=== PATIENT | male | born 1980 | race African-American/Black ===

== ENCOUNTER 2017-03-14 08:52 | Emergency (ER) | payer OTHER ==
[2017-03-14 09:02] VITALS: BP 145/79; PULSE 75; TEMP 98.6; BMI 29.8
[2017-03-14] MEDS ORDERED: ALBUTEROL SO4 0.083% IH SOL 2.5 MG/3 ML VIAL.NEB. NEB ONE ×2 (09:36→09:40)
[2017-03-14] MEDS ORDERED: IBUPROFEN 600 MG TABLET (FP) PO ONE (10:24)
[2017-03-14] MEDS ORDERED: IBUPROFEN 400 MG TABLET (FP) PO ONE (10:27)
--- NOTE | 2017-03-14 10:27 | PDOC ---
History of Present Illness - General Chief Complaint: Chest Pain Stated Complaint: CHEST PAIN Time Seen by Provider: 03/14/17 09:22 History Source: Patient Exam Limitations: No Limitations - History of Present Illness Initial Comments: 03/14/17 10:49 36 yr male with c/o cough body aches sore throat for 3 days no fever no vomiting no abd pain. Had loose stool yesterday. Pt has no PMHX, smokes cigarettes. Timing/Duration: constant Severity: mild Associated Symptoms: reports: cough Past History - Past Medical History Allergies/Adverse Reactions: Allergies Allergy/AdvReac Type Severity Reaction Status Date / Time ciprofloxacin [From Cipro] Allergy Verified 03/14/17 09:02 ciprofloxacin HCl Allergy Verified 03/14/17 09:02 [From Cipro] Penicillins Allergy Verified 03/14/17 09:02 fruits Allergy Mild Uncoded 03/14/17 09:02 Home Medications: Ambulatory Orders NK [No Known Home Medication] 03/14/17 COPD: No Other medical history: denies - Immunization History Td Vaccination: Yes Immunization Up to Date: Yes - Suicide/Smoking/Psychosocial Hx Smoking Status: No Smoking History: Never smoked Years of Tobacco Use: 0 Have you smoked in the past 12 months: No Number of Cigarettes Smoked Daily: 0 Cigars Per Day: 0 Information on smoking cessation initiated: No Hx Alcohol Use: No Drug/Substance Use Hx: No Substance Use Type: None Review of Systems - Review of Systems Able to Perform ROS?: Yes Is the patient limited [place] proficient: No Constitutional: No: Symptoms Reported HEENTM: Yes: Symptoms Reported Respiratory: Yes: Symptoms reported *Physical Exam - Vital Signs Last Vital Signs Temp Pulse Resp BP Pulse Ox 98.6 F 75 18 145/79 100 03/14/17 08:57 03/14/17 08:57 03/14/17 08:57 03/14/17 08:57 03/14/17 08:57 - Physical Exam General Appearance: Yes: Nourished, Appropriately Dressed HEENT: positive: EOMI, MURALI, Normal ENT Inspection, TMs Normal, Pharynx Normal Neck: positive: Supple. negative: Tender, Lymphadenopathy (R), Lymphadenopathy (L) Respiratory/Chest: positive: Lungs Clear, Normal Breath Sounds. negative: Chest Tender, Accessory Muscle Use Cardiovascular: positive: Regular Rhythm, Regular Rate Gastrointestinal/Abdominal: positive: Normal Bowel Sounds, Soft. negative: Tender Musculoskeletal: positive: Normal Inspection Extremity: positive: Normal Capillary Refill, Normal Inspection, Normal Range of Motion Integumentary: positive: Normal Color, Dry, Warm Neurologic: positive: Fully Oriented, Alert, Normal Mood/Affect, Normal Response , Motor Strength 08/17 ED Treatment Course - ADDITIONAL ORDERS Additional order review: 03/14/17 09:33 Group A Strep Rapid Antigen - Final Throat - Medications Given in the ED: ED Medications Discontinued Medications Generic Name Dose Route Start Last Admin Trade Name Freq PRN Reason Stop Dose Admin Albuterol Sulfate 1 amp 03/14/17 09:36 03/14/17 09:48 Ventolin 0.083% Nebulizer Soln - NEB 03/14/17 09:37 1 amp ONCE ONE Administration Medical Decision Making - Medical Decision Making 03/14/17 15:18 cc: cough sore throat body aches , non toxic well appearing took aleve at 3am neg nvd neg abd pain or back pain neg urinary complaints will check for strep motrin now pt requesting a work note for today neg strep dc inst verbally given all questions asked and answered. pt agrees with the plan of care *DC/Admit/Observation/Transfer Diagnosis at time of Disposition: Viral upper respiratory illness - Discharge Dispostion Disposition: HOME Condition at time of disposition: Good - Referrals Referrals: Trae Akhtar MD [Primary Care Provider] - - Patient Instructions Additional Instructions: take over the counter ibuprofen 600-800mg as directed for pain or fever get pleanty of rest increase vitamin C and Zinc intake to boost your immune system take Beneadryl at bedtime if needed to help sleep Return to ER for any worsening symptoms otherwise follow with on Saturday - Post Discharge Activity Forms/Work/School Notes: Back to Work
--- NOTE | 2017-03-21 11:41 | EKG ---
Test Reason : Blood Pressure : / mmHG Vent. Rate : 078 BPM Atrial Rate : 078 BPM P-R Int : 152 ms QRS Dur : 086 ms QT Int : 366 ms P-R-T Axes : -09 033 013 degrees QTc Int : 417 ms NORMAL SINUS RHYTHM NORMAL ECG WHEN COMPARED WITH ECG OF 16-APR-2012 06:40, NONSPECIFIC T WAVE ABNORMALITY NOW EVIDENT IN INFERIOR LEADS Confirmed by ANTONINO GHOSH MD ([id number]) on 03/21/2017 11:41:11 AM Referred By: Confirmed By:ANTONINO GHOSH MD
== END 2017-03-14 10:31 | disposition home or self-care (01) ==
LOC: JERFT 08:52
PROC: 3E0F7GC Introduction of Other Therapeutic Substance into Respiratory Tract, Via Natural or Artificial Opening (ICD-10-PCS; principal; 2017-03-14)
DX: J06.9 Acute upper respiratory infection, unspecified (principal); B97.89 Other viral agents as the cause of diseases classified elsewhere
CPT/HCPCS: 87070; 87077; 87430; 93005; 93010; 99281-25

== ENCOUNTER 2017-03-19 09:08 | Emergency (ER) | payer OTHER ==
[2017-03-19 09:15] VITALS: TEMP 98.5; BMI 31.1
--- NOTE | 2017-03-19 09:24 | PDOC ---
History of Present Illness - General Chief Complaint: Nausea/Vomiting Stated Complaint: NAUSEA/VOMITING Time Seen by Provider: 03/19/17 09:23 History Source: Patient Past History - Past Medical History Allergies/Adverse Reactions: Allergies Allergy/AdvReac Type Severity Reaction Status Date / Time ciprofloxacin [From Cipro] Allergy Verified 03/19/17 09:11 ciprofloxacin HCl Allergy Verified 03/19/17 09:11 [From Cipro] Penicillins Allergy Verified 03/19/17 09:11 fruits Allergy Mild Uncoded 03/19/17 09:11 Home Medications: Ambulatory Orders NK [No Known Home Medication] 03/14/17 COPD: No - Immunization History Td Vaccination: Yes Immunization Up to Date: Yes - Suicide/Smoking/Psychosocial Hx Smoking Status: No Smoking History: Never smoked Years of Tobacco Use: 0 Have you smoked in the past 12 months: No Number of Cigarettes Smoked Daily: 0 Cigars Per Day: 0 Information on smoking cessation initiated: No Hx Alcohol Use: No Drug/Substance Use Hx: No Substance Use Type: None *Physical Exam - Vital Signs Last Vital Signs Temp Pulse Resp BP Pulse Ox 98.5 F 73 18 147/84 100 03/19/17 09:11 03/19/17 09:11 03/19/17 09:11 03/19/17 09:11 03/19/17 09:11 *DC/Admit/Observation/Transfer - Referrals Referrals: Trae Akhtar MD [Primary Care Provider] - - Patient Instructions - Post Discharge Activity
--- NOTE | 2017-03-19 09:38 | PDOC ---
History of Present Illness <Michelle Whiting - Last Filed: 03/19/17 15:53> - General History Source: Patient Exam Limitations: No Limitations - History of Present Illness Initial Comments: 03/19/17 10:28 The patient is a 36 year old male with no significant PMH who presents to the emergency department with nausea, vomiting, and left upper quadrant pain beginning approximately three days ago. The patient was here on 03/14 with complaints of a sore throat but states his throat feels better. The patient reports increased nausea and vomiting since. The patient states the first few episodes of vomiting were food followed by yellow colored vomit. The patient notes the vomiting is occasionally triggered by coughing. The patient notes he has been unable to eat or drink. The patient states his left upper quadrant pain is exacerbated by deep inspiration. The patient also complains of associated fever, chills, generalized weakness, some chest pain, and fatigue. The patient denies any sick contacts or recent travel. The patient denies shortness of breath, headache and dizziness. Denies diarrhea and constipation. Denies dysuria, frequency, urgency and hematuria. Allergies: Cirpofloxacin Past surgical history: None reported Social history: No reported alcohol cigarette, or drug use. PCP: Dr. Akhtar <Shanon Khalil - Last Filed: 03/19/17 16:28> - General Chief Complaint: Nausea/Vomiting Stated Complaint: NAUSEA/VOMITING Time Seen by Provider: 03/19/17 09:23 Past History - Past Medical History COPD: No - Immunization History Td Vaccination: Yes Immunization Up to Date: Yes - Suicide/Smoking/Psychosocial Hx Smoking Status: No Smoking History: Never smoked Years of Tobacco Use: 0 Have you smoked in the past 12 months: No Number of Cigarettes Smoked Daily: 0 Cigars Per Day: 0 Information on smoking cessation initiated: No Hx Alcohol Use: No Drug/Substance Use Hx: No Substance Use Type: None <Michelle Whiting - Last Filed: 03/19/17 15:53> <Shanon Khalil - Last Filed: 03/19/17 16:28> - Past Medical History Allergies/Adverse Reactions: Allergies Allergy/AdvReac Type Severity Reaction Status Date / Time ciprofloxacin [From Cipro] Allergy Verified 03/19/17 09:11 ciprofloxacin HCl Allergy Verified 03/19/17 09:11 [From Cipro] fruits Allergy Mild Uncoded 03/19/17 09:11 Home Medications: Ambulatory Orders NK [No Known Home Medication] 03/14/17 Review of Systems - Review of Systems Able to Perform ROS?: Yes Comments:: 03/19/17 10:40 GENERAL/CONSTITUTIONAL: (+) Fever. (+) Weakness. No chills. HEAD, EYES, EARS, NOSE AND THROAT: No change in vision. No ear pain or discharge. No sore throat. CARDIOVASCULAR: (+) Some chest pain. No shortness of breath. RESPIRATORY: (+) cough. No wheezing, or hemoptysis. GASTROINTESTINAL: (+) nausea and vomiting. No diarrhea or constipation. GENITOURINARY: No dysuria, frequency, or change in urination. MUSCULOSKELETAL: No joint or muscle swelling or pain. No neck or back pain. SKIN: No rash NEUROLOGIC: No headache, vertigo, loss of consciousness, or change in strength/ sensation. ENDOCRINE: No increased thirst. No abnormal weight change. HEMATOLOGIC/LYMPHATIC: No anemia, easy bleeding, or history of blood clots. ALLERGIC/IMMUNOLOGIC: No hives or skin allergy. <Shanon Khalil - Last Filed: 03/19/17 16:28> *Physical Exam - Vital Signs Last Vital Signs Temp Pulse Resp BP Pulse Ox 98.5 F 73 18 147/84 100 03/19/17 09:11 03/19/17 09:11 03/19/17 09:11 03/19/17 09:11 03/19/17 09:11 <Michelle Whiting - Last Filed: 03/19/17 15:53> - Vital Signs Last Vital Signs Temp Pulse Resp BP Pulse Ox 98.5 F 73 18 147/84 100 03/19/17 09:11 03/19/17 09:11 03/19/17 09:11 03/19/17 09:11 03/19/17 09:11 - Physical Exam Comments: 03/19/17 10:41 GENERAL: (+) Appears uncomfortable. Awake, alert, and fully oriented HEAD: No signs of trauma EYES: PERRLA, EOMI, sclera anicteric, conjunctiva clear ENT: (+) Dry mucosa. (+) Throat erythema. (+) Enlarged tonsilar hypertrophy. Auricles normal inspection, hearing grossly normal, nares patent, no exudates. NECK: Normal ROM, supple, no lymphadenopathy, JVD, or masses LUNGS: Breath sounds equal, clear to auscultation bilaterally. No wheezes, and no crackles HEART: Regular rate and rhythm, normal S1 and S2, no murmurs, rubs or gallops ABDOMEN: (+) Left upper quadrant tenderness. Soft, normoactive bowel sounds. No guarding, no rebound. No masses EXTREMITIES: Normal range of motion, no edema. No clubbing or cyanosis. No cords, erythema, or tenderness NEUROLOGICAL: Cranial nerves II through XII grossly intact. Normal speech, normal gait SKIN: Warm, Dry, normal turgor, no rashes or lesions noted. <Shanon Khalil - Last Filed: 03/19/17 16:28> ED Treatment Course - LABORATORY CBC & Chemistry Diagram: 03/19/17 10:40 03/19/17 10:40 <Michelle Whiting - Last Filed: 03/19/17 15:53> - LABORATORY CBC & Chemistry Diagram: 03/19/17 10:40 03/19/17 10:40 <Shanon Khalil - Last Filed: 03/19/17 16:28> Medical Decision Making - Medical Decision Making 03/19/17 11:53 Pt reassessed, still having stomach discomfort. Will give analgesic and continue to monitor. 03/19/17 12:48 Pt reassessed. Reports improvement in symptoms, but still having significant L- sided tenderness, now in the LLQ as well. Will obtain CT to further evaluate. <Michelle Whiting - Last Filed: 03/19/17 15:53> *DC/Admit/Observation/Transfer - Discharge Dispostion Admit: No <Michelle Whiting - Last Filed: 03/19/17 15:53> - Attestations Scribe Attestion: 03/19/17 10:43 Documentation prepared by Shanon Khalil, acting as medical equipment technician for Michelle Whiting MD. <Shanon Khalil - Last Filed: 03/19/17 16:28> Diagnosis at time of Disposition: Abdominal pain Qualifiers: Abdominal location: unspecified location Qualified Code(s): R10.9 - Unspecified abdominal pain - Discharge Dispostion Disposition: HOME Condition at time of disposition: Stable - Referrals Referrals: Juancarlos Brenner MD [Staff Physician] - - Patient Instructions Printed Discharge Instructions: DI for Abdominal Pain-Adult - Post Discharge Activity
[2017-03-19] MEDS ORDERED: FAMOTIDINE IV 20 MG/12 ML VIAL IVPB ONE (10:26)
[2017-03-19] MEDS ORDERED: SODIUM CHLORIDE 1,000 ML IV STA (10:26)
[2017-03-19] MEDS ORDERED: ONDANSETRON 4 MG/2 ML VIAL IVPUSH ONE (10:26)
[2017-03-19] MEDS ORDERED: FAMOTIDINE 20 MG/50 ML IVPB 20 MG/50 ML MG IVPB ONE (10:48)
[2017-03-19] MEDS ORDERED: ONDANSETRON 4 MG/2 ML VIAL ONE (10:48)
[2017-03-19 10:58] LABS: EOSINOPHIL 0.6 % (0-4.5); MCH 28.7 pg (25.7-33.7); MEAN PLT VOLUME 8.1 fl (7.5-11.1); NEUTROPHILS 67.2 % (42.8-82.8); PLATELET COUNT 317 K/MM3 (134-434); RDW 13.8 % (11.9-15.9); WHITE BLOOD COUNT 10.8 K/mm3 (4.0-10.0)
[2017-03-19 11:23] LABS: ALBUMIN 4.3 g/dl (3.4-5.0); ANION GAP 9 (8-16); BILIRUBIN,TOTAL 0.7 mg/dL (0.2-1.0); CALCIUM 9.7 mg/dL (8.5-10.1); CO2 27 mmol/L (21-32); CREATININE 1.2 mg/dL (0.7-1.3); GLUCOSE,RANDOM 95 mg/dL (74-106); SGOT/AST 17 U/L (15-37); SGPT/ALT 23 U/L (12-78); TOT PROT 8.6 g/dl (6.4-8.2)
[2017-03-19 11:24] LABS: ALK PHOS 90 U/L (45-117)
[2017-03-19] MEDS ORDERED: ACETAMINOPHEN 1000 MG/100 ML VIAL (NON FORMULARY) IVPB ONE (11:53)
[2017-03-19] MEDS ORDERED: ACETAMINOPHEN INJECTION 100 ML IVPB ONE (11:57)
[2017-03-19] MEDS ORDERED: PANTOPRAZOLE SODIUM 40 MG VIAL IVPUSH ONE (15:09)
[2017-03-19] MEDS ORDERED: PANTOPRAZOLE SODIUM 40 MG VIAL ONE (15:20)
[2017-03-19 16:51] VITALS: BP 145/86; PULSE 71
[2017-03-19 16:57] LABS: URINE APPEARANCE CLEAR; URINE BILIRUBIN NEGATIVE (NEGATIVE); URINE BLOOD NEGATIVE (NEGATIVE); URINE COLOR LTYELLOW; URINE GLUCOSE (UA) NEGATIVE (NEGATIVE); URINE KETONE 1+ (NEGATIVE); URINE NITRITE NEGATIVE (NEGATIVE); URINE PROTEIN NEGATIVE (NEGATIVE); URINE UROBILINOGEN 4.0 E.U/dl mg/dL (0.2-1.0)
[2017-03-19 18:57] LABS: URINE LEUK ESTERASE Negative (NEGATIVE)
== END 2017-03-19 16:58 | disposition home or self-care (01) ==
LOC: JER 09:08
PROC: 3E033NZ Introduction of Analgesics, Hypnotics, Sedatives into Peripheral Vein, Percutaneous Approach (ICD-10-PCS; principal; 2017-03-19)
PROC: 3E033GC Introduction of Other Therapeutic Substance into Peripheral Vein, Percutaneous Approach (ICD-10-PCS; 2017-03-19)
PROC: 3E0337Z Introduction of Electrolytic and Water Balance Substance into Peripheral Vein, Percutaneous Approach (ICD-10-PCS; 2017-03-19)
DX: R10.9 Unspecified abdominal pain (principal)
CPT/HCPCS: 36415; 74177-TC; 80053; 81003; 83690; 85025; 96361; 96365; 96375; 99282-25; Q9967

== ENCOUNTER 2017-06-29 23:06 | Emergency (ER) | payer OTHER ==
[2017-06-29 23:25] VITALS: BP 124/75; PULSE 54; TEMP 98; BMI 29.8
--- NOTE | 2017-06-29 23:44 | PDOC ---
History of Present Illness - General History Source: Patient Exam Limitations: No Limitations <Shanon Khalil - Last Filed: 06/30/17 00:06> <Joel Knapp - Last Filed: 06/30/17 00:54> - General Chief Complaint: Chest Pain Stated Complaint: CHEST PAIN Time Seen by Provider: 06/29/17 23:43 - History of Present Illness Initial Comments: 06/30/17 00:06 The patient is a 36 year old male with no significant PMH who presents to the emergency department with muscular pain along the breast bone after sneezing this morning that is worsened by deep inspiration. The patient reports he took an Aleve PM with minimal relief. The patient endorses sick contact but denies leg swelling, recent travel, or long periods of inactivity. The patient denies shortness of breath, headache and dizziness. Denies fever, chills, nausea, vomit, diarrhea and constipation. Denies dysuria, frequency, urgency and hematuria. Allergies: NKA Past surgical history: None reported. Social history: No reported alcohol, drug, or cigarette use. (Shanon Khalil) Past History <Shanon Khalil - Last Filed: 06/30/17 00:06> - Past Medical History COPD: No - Immunization History Td Vaccination: Yes Immunization Up to Date: Yes - Suicide/Smoking/Psychosocial Hx Smoking Status: No Smoking History: Former smoker Years of Tobacco Use: 0 Have you smoked in the past 12 months: No Number of Cigarettes Smoked Daily: 0 Cigars Per Day: 0 Information on smoking cessation initiated: No Hx Alcohol Use: No Drug/Substance Use Hx: No Substance Use Type: None <Joel Knapp - Last Filed: 06/30/17 00:54> - Past Medical History Allergies/Adverse Reactions: Allergies Allergy/AdvReac Type Severity Reaction Status Date / Time ciprofloxacin [From Cipro] Allergy Verified 06/29/17 23:21 ciprofloxacin HCl Allergy Verified 06/29/17 23:21 [From Cipro] fruits Allergy Mild Uncoded 06/29/17 23:21 Home Medications: Ambulatory Orders Ondansetron [Zofran -] 4 mg PO TID PRN #21 tablet 03/19/17 Pantoprazole Sodium [Protonix -] 40 mg PO DAILY #30 tablet.ec 03/19/17 Review of Systems - Review of Systems Able to Perform ROS?: Yes <Shanon Khalil - Last Filed: 06/30/17 00:06> <Joel Knapp - Last Filed: 06/30/17 00:54> - Review of Systems Comments:: 06/29/17 23:57 CONSTITUTIONAL: No fever, no chills, no fatigue EYES: No visual changes ENT: No ear pain, no sore throat CARDIOVASCULAR: (+) Chest pain. no palpitations RESPIRATORY: No cough, no SOB GI: No abdominal pain, no nausea, no vomiting, no constipation, no diarrhea GENITOURINARY: No dysuria, no frequency, no hematuria MUSKULOSKELETAL: No backpain, no joint pain, no myalgias SKIN: No rash NEURO: No headache (Shanon Khalil) *Physical Exam <Shanon Khalil - Last Filed: 06/30/17 00:06> <Joel Knapp - Last Filed: 06/30/17 00:54> - Vital Signs Last Vital Signs Temp Pulse Resp BP Pulse Ox 98 F 54 L 16 124/75 99 06/29/17 23:22 06/29/17 23:22 06/29/17 23:22 06/29/17 23:22 06/29/17 23:22 - Physical Exam Comments: 06/29/17 23:57 CONSTITUTIONAL: Well-appearing; well-nourished; in no apparent distress HEAD: Normocephalic; atraumatic EYES: PERRL; EOM intact ENMT: External appears normal; normal oropharynx NECK: Supple; non-tender; no cervical lymphadenopathy CARD: Normal S1, S2; no murmurs, rubs, or gallops RESP: Normal chest excursion with respiration; breath sounds clear and equal bilaterally; no wheezes, rhonchi, or rales ABD: Soft, non-distended; non-tender; no palpable organomegaly, no palpable hernias EXT: Normal ROM in all four extremities; non-tender to palpation; distal pulses intact SKIN: Warm, dry, no rash NEURO: No focal neurological deficiencies. (Shanon Khalil) Heart Score/ECG Review <Shanon Khalil - Last Filed: 06/30/17 00:06> <Joel Knapp - Last Filed: 06/30/17 00:54> #1 06/29/17 23:58 EKG performed at [23:27] demonstrates rate of [90], Normal Sinus Rhythm. (Shanon Khalil) - Medications Given in the ED: ED Medications Discontinued Medications Generic Name Dose Route Start Last Admin Trade Name Trista PRN Reason Stop Dose Admin Ketorolac Tromethamine 60 mg 06/29/17 23:55 06/30/17 00:04 Toradol Injection - IM 06/29/17 23:56 60 mg ONCE ONE Administration Tramadol HCl 50 mg 06/30/17 00:45 06/30/17 00:52 Ultram - PO 06/30/17 00:46 50 mg ONCE ONE Administration Medical Decision Making <Shanon Khalil - Last Filed: 06/30/17 00:06> <Joel Knapp - Last Filed: 06/30/17 00:54> - Medical Decision Making 06/30/17 00:53 Patient was musculoskeletal chest wall pain. ACS or PE highly unlikely. I do not suspect pneumothorax either. Patient improved after administration of Toradol. We'll administer tramadol. Will discharge. (Joel Knapp) *DC/Admit/Observation/Transfer <Shanon Khalil - Last Filed: 06/30/17 00:06> <Joel Knapp - Last Filed: 06/30/17 00:54> Diagnosis at time of Disposition: Chest wall pain - Discharge Dispostion Disposition: HOME Condition at time of disposition: Stable - Referrals Referrals: Tare Akhtar MD [Primary Care Provider] - - Patient Instructions Printed Discharge Instructions: DI for Chest Pain - Post Discharge Activity Forms/Work/School Notes: Back to Work - Attestations Scribe Attestion: 06/29/17 23:57 Documentation prepared by Shanon Khalil, acting as medical csr for Joel Knapp MD. (Shanon Khalil) Physician Attestion: 06/30/17 00:53 The documentation was prepared by the scribe under my direct supervision. I have reviewed the documentation which correctly represents the findings, medical decision-making and critical action taken by me. (Joel Knapp)
[2017-06-29] MEDS ORDERED: KETOROLAC TROMETHAMINE 60 MG/2 ML VIAL IM ONE (23:55)
[2017-06-30] MEDS ORDERED: KETOROLAC TROMETHAMINE 60 MG/2 ML VIAL ONE (00:01)
[2017-06-30] MEDS ORDERED: traMADol HCL 50 MG TABLET PO ONE (00:45)
[2017-06-30] MEDS ORDERED: traMADol HCL 50 MG TABLET ONE (00:51)
--- NOTE | 2017-06-30 23:58 | EKG ---
Test Reason : Blood Pressure : / mmHG Vent. Rate : 090 BPM Atrial Rate : 091 BPM P-R Int : 140 ms QRS Dur : 086 ms QT Int : 366 ms P-R-T Axes : 069 057 053 degrees QTc Int : 447 ms POOR DATA QUALITY, INTERPRETATION MAY BE ADVERSELY AFFECTED NORMAL SINUS RHYTHM NORMAL ECG WHEN COMPARED WITH ECG OF 14-MAR-2017 08:56, NONSPECIFIC T WAVE ABNORMALITY NO LONGER EVIDENT IN INFERIOR LEADS Confirmed by ESTUARDO GUARDADO MD ([id number]) on 06/30/2017 11:57:44 PM Referred By: Confirmed By:ESTUARDO GUARDADO MD
== END 2017-06-30 01:02 | disposition home or self-care (01) ==
LOC: JER 23:06
PROC: 3E0233Z Introduction of Anti-inflammatory into Muscle, Percutaneous Approach (ICD-10-PCS; principal; 2017-06-29)
DX: R07.89 Other chest pain (principal); Z87.891 Personal history of nicotine dependence
CPT/HCPCS: 93005; 93010; 96372; 99281-25

== ENCOUNTER 2017-07-14 08:22 | Emergency (ER) | payer OTHER ==
[2017-07-14 08:28] VITALS: BP 122/87; PULSE 84; TEMP 98.3; BMI 28.8
--- NOTE | 2017-07-14 08:44 | PDOC ---
History of Present Illness - General Chief Complaint: Injury Stated Complaint: INJURY Time Seen by Provider: 07/14/17 08:34 History Source: Patient Exam Limitations: No Limitations - History of Present Illness Initial Comments: 07/14/17 09:58 Best Contact: Pmhx:HTN "once in my life 3 years ago" Pshx: N/A Allergies: NKDA 37-year-old male right hand dominant presents to the emergency department complaining of dorsal right wrist pain. Patient states pain is more towards the medial aspect. The pain is exacerbated on movement, especially attempting to supinate and pronate his right wrist. Patient states while walking his dog at approximately 0500 hrs. this morning, he tripped and fell forward onto his right wrist/hand. Patient denies any head injuries, neck/back pains, extremity numbness or tingling sensation. Patient states the pain is 10/10 sharp nonradiating constant pain while moving but minimal at rest. Patient denies any other injuries or complaints. Occurred: reports: just prior to arrival Past History - Past Medical History Allergies/Adverse Reactions: Allergies Allergy/AdvReac Type Severity Reaction Status Date / Time ciprofloxacin [From Cipro] Allergy Verified 07/14/17 08:25 ciprofloxacin HCl Allergy Verified 07/14/17 08:25 [From Cipro] fruits Allergy Mild Uncoded 07/14/17 08:25 Home Medications: Ambulatory Orders NK [No Known Home Medication] 07/14/17 COPD: No - Immunization History Td Vaccination: Yes Immunization Up to Date: Yes - Suicide/Smoking/Psychosocial Hx Smoking Status: No Smoking History: Former smoker Years of Tobacco Use: 0 Have you smoked in the past 12 months: No Number of Cigarettes Smoked Daily: 0 Cigars Per Day: 0 Information on smoking cessation initiated: No Hx Alcohol Use: No Drug/Substance Use Hx: No Substance Use Type: None Trauma Specific PMHX - Complaint Specific PMHX Back Injury: No Neck Injury: No *Physical Exam - Vital Signs Last Vital Signs Temp Pulse Resp BP Pulse Ox 98.3 F 84 18 122/87 100 07/14/17 08:26 07/14/17 08:26 07/14/17 08:26 07/14/17 08:26 07/14/17 08:26 ED Treatment Course - RADIOLOGY Radiograph Interpretation: 07/14/17 09:55 XR: Right wrist; ?hamate fx/dislocations CT upper ext w/o contrast: neg fx/dislocation Progress Note - Progress Note Progress Note: Right sugar tong/orthoglass Medical Decision Making - Medical Decision Making 07/14/17 10:00 This is a 37-year-old male who is right hand dominant and comes to the ER complaining of right wrist pain after a slip and fall while walking his dog. Patient fell forward onto his right hand/wrist but deny any head,neck or back injuries. I ordered a plain film of his right wrist which does not show any obvious fracture or dislocation but I was a bit concerned about the hamate. On palpation to the hamate, patient is in excruciating pain. Although the patient is not able to supinate or pronate his right wrist due to's the severity of his pain I decided to order a CAT scan without contrast to his right hand/wrist. Patient will have a sugar tong splint to prevent him from supinating and pronating his right wrist. Strict instructions to follow-up with although within 48 hours. *DC/Admit/Observation/Transfer Diagnosis at time of Disposition: Contusion of wrist, right Qualifiers: Encounter type: initial encounter Qualified Code(s): S60.211A - Contusion of right wrist, initial encounter - Discharge Dispostion Disposition: HOME Condition at time of disposition: Stable Admit: No - Referrals Referrals: Trae Akhtar MD [Primary Care Provider] - Redd Lu MD [Staff Physician] - - Patient Instructions Printed Discharge Instructions: DI for Wrist Sprain, DI for Contusion Additional Instructions: Ice; 20 mins on alternating with 20 mins off for 48 hours while awake. Rest Elevate Follow up with your orthopedic surgeon or the one listed on the discharge form. Return to the ER for severe/persistent/worsening symptoms, extremity numbness/ tingling sensation. - Post Discharge Activity Forms/Work/School Notes: Back to Work
[2017-07-14] MEDS ORDERED: IBUPROFEN 400 MG TABLET (FP) PO ONE ×2 (09:26→09:33)
== END 2017-07-14 11:05 | disposition home or self-care (01) ==
LOC: JERFT 08:22
DX: S60.211A Contusion of right wrist, initial encounter (principal); W18.39XA Other fall on same level, initial encounter; Y93.K1 Activity, walking an animal; Y92.414 Local residential or business street as the place of occurrence of the external cause; Y99.8 Other external cause status
CPT/HCPCS: 73110-TC-RT-FY; 73200-TC-RT; 99282-25

== ENCOUNTER 2021-10-29 13:29 | Emergency (ER) | payer OTHER ==
[2021-10-29 13:46] VITALS: BP 135/93; PULSE 84; TEMP 97.9; BMI 29.8
[2021-10-29] MEDS ORDERED: ACETAMINOPHEN 500 MG TABLET (FP) PO ONE (14:01)
[2021-10-29] MEDS ORDERED: diazePAM 5 MG TABLET PO ONE (14:01)
[2021-10-29] MEDS ORDERED: KETOROLAC TROMETHAMINE 60 MG/2 ML VIAL IM ONE (14:01)
[2021-10-29] MEDS ORDERED: ACETAMINOPHEN 500 MG TABLET (FP) ONE (14:03)
[2021-10-29] MEDS ORDERED: diazePAM 5 MG TABLET ONE (14:03)
[2021-10-29] MEDS ORDERED: KETOROLAC TROMETHAMINE 60 MG/2 ML VIAL ONE (14:03)
[2021-10-29] MEDS ORDERED: LIDOCAINE 5% TOPICAL PATCH TP ONE (15:58)
[2021-10-29] MEDS ORDERED: LIDOCAINE 5% TOPICAL PATCH ONE (15:58)
[2021-10-29] MEDS ORDERED: LIDOCAINE PATCH REMOVAL MC SCH (22:00)
== END 2021-10-29 16:06 | disposition home or self-care (01) ==
LOC: JER 13:29 → JERFT 13:29
PROC: 3E0233Z Introduction of Anti-inflammatory into Muscle, Percutaneous Approach (ICD-10-PCS; principal; 2021-10-29)
DX: S29.012A Strain of muscle and tendon of back wall of thorax, initial encounter (principal); M25.511 Pain in right shoulder; S39.012A Strain of muscle, fascia and tendon of lower back, initial encounter
CPT/HCPCS: 71111-TC-FY; 73030-TC-LT-FY; 73030-TC-RT-FY; 99284-25

== ENCOUNTER 2021-11-01 10:12 | Emergency (ER) | payer OTHER ==
[2021-11-01 10:24] VITALS: BP 152/87; PULSE 66; TEMP 98; BMI 29.1
[2021-11-01] MEDS ORDERED: KETOROLAC TROMETHAMINE 60 MG/2 ML VIAL IM ONE (11:19)
[2021-11-01] MEDS ORDERED: ONDANSETRON 4 MG/2 ML VIAL IVPUSH ONE (11:32)
[2021-11-01] MEDS ORDERED: KETOROLAC TROMETHAMINE 30 MG/1 ML VIAL IVPUSH ONE (11:32)
[2021-11-01] MEDS ORDERED: ONDANSETRON 4 MG/2 ML VIAL ONE (11:34)
[2021-11-01] MEDS ORDERED: KETOROLAC TROMETHAMINE 30 MG/1 ML VIAL ONE (11:34)
[2021-11-01] MEDS ORDERED: ACETAMINOPHEN 1000 MG/100 ML BAG IVPB ONE (12:17)
[2021-11-01] MEDS ORDERED: ACETAMINOPHEN INJECTION 100 ML IVPB ONE (12:19)
== END 2021-11-01 14:25 | disposition home or self-care (01) ==
LOC: JERFT 10:12 → JER 10:12 → JERFT 14:31
PROC: 3E033GC Introduction of Other Therapeutic Substance into Peripheral Vein, Percutaneous Approach (ICD-10-PCS; principal; 2021-11-01)
DX: M54.2 Cervicalgia (principal); M54.6 Pain in thoracic spine
CPT/HCPCS: 72125-TC; 72128-TC; 72131-TC; 99285-25

== ENCOUNTER 2021-12-02 19:53 | Emergency (ER) | payer OTHER ==
[2021-12-02 20:08] VITALS: BP 136/86; RESP 18; TEMP 98.6; BMI 27.1
[2021-12-02] MEDS ORDERED: ONDANSETRON 4 MG/2 ML VIAL IVPUSH ONE (21:08)
[2021-12-02] MEDS ORDERED: KETOROLAC TROMETHAMINE 30 MG/1 ML VIAL IVPUSH ONE (21:08)
[2021-12-02] MEDS ORDERED: SODIUM CHLORIDE 0.9% 500 ML INFUS.BAG IV ONE (21:08)
[2021-12-02 22:35] VITALS: PULSE 85
== END 2021-12-02 22:42 | disposition home or self-care (01) ==
LOC: JER 19:53
PROC: 3E0333Z Introduction of Anti-inflammatory into Peripheral Vein, Percutaneous Approach (ICD-10-PCS; principal; 2021-12-02)
PROC: 3E033GC Introduction of Other Therapeutic Substance into Peripheral Vein, Percutaneous Approach (ICD-10-PCS; 2021-12-02)
DX: U07.1 COVID-19 (principal)
CPT/HCPCS: 0241U-QW; 99284-25

== ENCOUNTER 2021-12-05 17:34 | Emergency (ER) | payer OTHER ==
[2021-12-05 17:50] VITALS: BP 133/79; PULSE 67; RESP 18; TEMP 98.3; BMI 27.1
[2021-12-05] MEDS ORDERED: ONDANSETRON 4 MG/2 ML VIAL IVPUSH ONE (19:15)
[2021-12-05] MEDS ORDERED: SODIUM CHLORIDE 0.9% 500 ML INFUS.BAG IV ONE (19:15)
[2021-12-05] MEDS ORDERED: KETOROLAC TROMETHAMINE 30 MG/1 ML VIAL IVPUSH ONE (19:15)
[2021-12-05] MEDS ORDERED: ACETAMINOPHEN 1000 MG/100 ML BAG IVPB ONE (19:15)
[2021-12-05] MEDS ORDERED: ACETAMINOPHEN INJECTION 100 ML IVPB ONE (19:20)
[2021-12-05] MEDS ORDERED: KETOROLAC TROMETHAMINE 30 MG/1 ML VIAL ONE (19:20)
[2021-12-05] MEDS ORDERED: ONDANSETRON 4 MG/2 ML VIAL ONE (19:21)
[2021-12-05 20:36] LABS: BASO % 0.7 % (0-2.0); EOS % 0.4 % (0-4.5); HEMATOCRIT 44.9 % (35.4-49); HEMOGLOBIN 15.2 GM/dL (11.7-16.9); LYMPH % 38.1 % (8-40); MCH 29.7 pg (25.7-33.7); MCHC 33.8 g/dl (32.0-35.9); MEAN CELL VOLUME 87.8 fl (80-96); MEAN PLT VOLUME 8.4 fl (7.5-11.1); MONO % 18.8 % (3.8-10.2); PLATELET COUNT 174 10^3/uL (134-434); RBC 5.11 M/mm3 (4.00-5.60); RDW 13.6 % (11.9-15.9); WHITE BLOOD COUNT 4.5 K/mm3 (4.0-10.0)
[2021-12-05 21:01] LABS: ALBUMIN 4.1 g/dl (3.4-5.0); BLOOD UREA NITROGEN 10.3 mg/dL (7-18); CALCIUM 8.7 mg/dL (8.5-10.1)
[2021-12-05 21:06] LABS: CREATININE 1.1 mg/dL (0.55-1.3)
[2021-12-05 21:07] LABS: BILIRUBIN,TOTAL 0.5 mg/dL (0.2-1); TOT PROT 7.7 g/dl (6.4-8.2)
== END 2021-12-05 22:13 | disposition home or self-care (01) ==
LOC: JER 17:34
PROC: 3E0333Z Introduction of Anti-inflammatory into Peripheral Vein, Percutaneous Approach (ICD-10-PCS; principal; 2021-12-05)
PROC: 3E0333Z Introduction of Anti-inflammatory into Peripheral Vein, Percutaneous Approach (ICD-10-PCS; 2021-12-05)
PROC: 3E033GC Introduction of Other Therapeutic Substance into Peripheral Vein, Percutaneous Approach (ICD-10-PCS; 2021-12-05)
DX: U07.1 COVID-19 (principal); R11.10 Vomiting, unspecified
CPT/HCPCS: 36415; 80053; 85025; 99284-25

== ENCOUNTER 2022-04-14 09:05 | Emergency (ER) | payer OTHER ==
[2022-04-14 09:25] VITALS: BP 143/94; PULSE 98; RESP 18; TEMP 98.2; BMI 28.5
[2022-04-14] MEDS ORDERED: cefTRIAXone SODIUM 1 GM VIAL ONE (10:05)
[2022-04-14] MEDS ORDERED: LIDOCAINE HCL 1%, 10 MG/ML (20ML VIAL) ONE (10:07)
[2022-04-14 10:53] LABS: PH,URINE 5.5 (5.0-8.0); URINE APPEARANCE CLEAR; URINE BILIRUBIN NEGATIVE (NEGATIVE); URINE COLOR YELLOW; URINE GLUCOSE (UA) NEGATIVE (NEGATIVE); URINE KETONE NEGATIVE (NEGATIVE); URINE LEUK ESTERASE NEGATIVE (NEGATIVE); URINE NITRITE NEGATIVE (NEGATIVE); URINE PROTEIN NEGATIVE (NEGATIVE); URINE UROBILINOGEN 0.2 mg/dL (0.2-1.0)
[2022-04-14 11:38] LABS: SYPHILIS W/ RPR CONF NON-REACTIVE (NONREACTIVE)
[2022-04-14 12:06] LABS: HIV INTERPRETATION NEGATIVE (NEGATIVE)
== END 2022-04-14 10:27 | disposition home or self-care (01) ==
LOC: JERFT 09:05 → JER 09:05 → JERFT 10:27
PROC: 3E023GC Introduction of Other Therapeutic Substance into Muscle, Percutaneous Approach (ICD-10-PCS; principal; 2022-04-14)
DX: N48.89 Other specified disorders of penis (principal)
CPT/HCPCS: 36415; 81003; 86780; 87086; 87389; 87491; 87591; 99284-25

== ENCOUNTER 2023-11-07 04:32 | Emergency (ER) | payer BC, OTHER ==
[2023-11-07 04:42] VITALS: BP 120/93; PULSE 74; RESP 20; TEMP 98.2; BMI 28.0
[2023-11-07] MEDS ORDERED: CYCLOBENZAPRINE HCL 10 MG TABLET (FP) ONE (05:02)
[2023-11-07] MEDS ORDERED: LIDOCAINE 4% PATCH TP ONE (05:03)
[2023-11-07] MEDS ORDERED: ACETAMINOPHEN 500 MG TABLET (FP) ONE (05:06)
[2023-11-07] MEDS: ACETAMINOPHEN 500 MG TABLET (FP) PO ONE (05:09)
[2023-11-07] MEDS: CYCLOBENZAPRINE HCL 10 MG TABLET (FP) PO ONE (05:09)
[2023-11-07] MEDS: LIDOCAINE 4% PATCH TP ONE (05:09)
[2023-11-07] MEDS ORDERED: LIDOCAINE PATCH REMOVAL MC ONE (17:00)
== END 2023-11-07 05:48 | disposition home or self-care (01) ==
LOC: JER 04:32
DX: S29.012A Strain of muscle and tendon of back wall of thorax, initial encounter (principal); W22.8XXA Striking against or struck by other objects, initial encounter; Y99.0 Civilian activity done for income or pay
CPT/HCPCS: 99283-25

== ENCOUNTER 2024-10-24 18:03 | Emergency (ER) | payer BC ==
[2024-10-24 18:24] VITALS: BP 142/82; PULSE 76; RESP 16; TEMP 98.1; BMI 28.5
== END 2024-10-24 19:08 | disposition home or self-care (01) ==
LOC: JERFT 18:03
DX: K08.89 Other specified disorders of teeth and supporting structures (principal)
CPT/HCPCS: 99283-25